=== PATIENT | female | born 2000 | race Caucasian/White ===

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

== ENCOUNTER 2023-08-24 13:45 | Emergency (ER) | payer BC, MEDICAID, SELFPAY ==
[2023-08-24 13:48] VITALS: BP 133/102; PULSE 103; RESP 18; TEMP 36.4; O2SAT 91
--- NOTE | 2023-08-24 14:13 | EDS_ITS ---
HPI HPI - Female History of Present Illness Chief Complaint: Vag Bleeding Detail of Chief Complaint: Fever on Tuesday now resolved. Informant: patient and parent Narrative Narrative: 23-year-old female with history of severe autism. On Depo shot. She had a fever on Tuesday and since resolved. She has had no cough. No nausea or vomiting. No diarrhea. She also started having vaginal bleeding today. Has not had a menstrual period for 3 years. Patient is very limited in her communication skills due to her autism and is unable to really add any history. Father is in the room is giving history. Prior similar symptoms: Yes Recent Illness/Hospitalization: No PFSH PFSH Medical History Autism Home Medications Lactobacillus rhamnosus GG 20 billion cell capsule (Probiotic Digestive Care) 2 ea PO BID [facility] 01/01/17 [History Last Taken 03/19/21] polyethylene glycol 3350 17 gram oral powder packet 17 g PO DAILY Check with primary doctor 01/01/17 [History Last Taken 03/19/21] medroxyprogesterone 150 mg/mL intramuscular syringe 150 mg IM .[id number] HORMONES 03/19/21 [History Last Taken 1 Month Ago ~02/16/21] dexamethasone 4 mg tablet (Decadron) 4 mg PO DAILY #5 tabs 05/28/21 [Rx Last Taken Unknown] levetiracetam 750 mg tablet (Keppra) 750 mg PO BID 06/01/21 [History Last Taken Unknown] sulfamethoxazole 800 mg-trimethoprim 160 mg tablet (Bactrim DS) 1 tab PO BID 5 days #10 tabs 08/24/23 [Rx Last Taken Unknown] Allergy/AdvReac Type Severity Reaction Status Date / Time No Known Allergies Allergy Verified 08/24/23 13:47 Social History Smoking Status: Never smoker ROS ROS ED ROS Narrative Fever on Tuesday resolved. Vaginal bleeding. Very limited review of systems due to patient's mental status. Discussed with father. Review of Systems ROS Unobtainable: due to mental condition Constitutional Constitutional ED: Reports fever(s); Denies chills Eyes Eyes: Denies blurry vision ENT ENT ED: Denies ear pain Cardiovascular Cardiovascular: Denies chest pain Respiratory/Chest Respiratory/Chest: Denies cough or dyspnea Gastrointestinal Gastrointestinal: Denies abdominal pain Genitourinary Genitourinary ED: Denies dysuria or hematuria Musculoskeletal Musculoskeletal: Denies arthralgias or myalgias Integumentary Denies abscess or Abrasions Neurologic Neurologic: Denies headache(s) Psychiatric Psychiatric: Denies anxiety Endocrine Endocrinology: Denies heat intolerance Hematologic/Lymphatic Hematologic/Lymphatic: Denies easy bleeding or easy bruising Allergic/Immunologic Allergic/Immunologic ED: Denies tongue swelling EXAM Physical Exam Narrative Exam Narrative: 23-year-old autistic female. Vital signs stable afebrile. H EENT exam unremarkable. Mytrex membranes. TMs normal bilaterally. Neck nontender no lymphadenopathy. Lungs clear to auscultation bilaterally. Heart regular rhythm rate about 100 no murmur. Chest wall and ribs nontender. Abdomen soft, nontender, nondistended normal bowel sounds no peritoneal signs. No localizing tenderness. Moving all 4 extremities. Nontender no edema. No cellulitis. No deformity. Back nontender. Neurologically she is awake. Her eyes are open. She is alert. She is a very limited informant and is very limited communication skills due to her autism. Father is present in room. Const Vital Signs: 08/24/23 13:48 08/24/23 15:47 08/24/23 16:04 Temperature 97.6 F L 98.9 F Temperature Source Temporal Oral Pulse Rate 103 H 96 83 Respiratory Rate 18 16 16 Blood Pressure 133/102 H 149/82 H 146/71 H Blood Pressure Mean 112 104 96 Pulse Ox 91 97 96 Oxygen Delivery Method Room Air Room Air Room Air Positive well nourished and well developed; Negative for cachectic, contractures or unkempt General Appearance ED: well developed and NAD; Negative for unkempt, cachectic, contractures or pallor Nutritional Appearance: Negative for cachectic HEENT Reports TM's clear and moist mucous membranes; Denies dry mucous membranes Negative for trauma or tenderness Tympanic Membrane ED: Yes TM's clear Mouth ED: No dry mucous membranes Mouth: No dry mucous membranes Eyes PERRL and EOMs intact bilaterally General Eye ED: Negative for pale conjunctiva, scleral icterus or other Neck no lymphadenopathy, supple and no JVD General: Negative for other Thyroid: Negative for tender Lymph Lymphatic: Negative for other Chest Wall inspection of chest normal and palpation of chest normal Chest: Negative for other Resp normal respiratory effort and clear to auscultation bilaterally Effort and Inspection: Negative for pain with movement Auscultation: Negative for rales, rhonchi, wheezes or diminished lung sounds Cardio regular rate, regular rhythm, S1 normal heart sound, no murmurs and no JVD Rate: Negative for bradycardia or tachycardic Rhythm: Negative for abnormal rhythm GI normal to inspection, nondistended, normoactive bowel sounds, soft to palpation, non-tender, non-distended and no masses Auscultation: normoactive bowel sounds Palpation: Negative for tender, guarding or rigid Back/Spine no CVA tenderness General Back: Negative for CVA tenderness Cervical Spine: Negative for cervical spine tenderness Thoracic Spine / Upper Back: Negative for thoracic spinal tenderness Lumbar Spine / Lower Back: Negative for lumbar spinal tenderness Sacrum: Negative for other Extremity normal to inspection and full ROM General Extremety ED: Negative for edema or tenderness General Extremity: Negative for edema Neuro CN's II-XII intact bilaterally Neuro Narrative: Awake alert. Eyes open. Follows very limited commands. Severe autism. Sensorium / Orientation: alert; Negative for oriented to place or oriented to time Psych mental status grossly normal Appearance: Negative for unkempt Attitude: No agitated Speech: No other Mood & Affect: Negative for depressed, anxious or tearful Skin no rashes or lesions noted and no wounds General Skin Exam: Negative for jaundice or pallor Rashes: No rashes noted Trauma: Negative for other MDM MDM MDM Narrative Medical decision making narrative: 23-year-old autistic female with fever on Tuesday resolved. Benign exam. I will do screening labs and UA will be obtained. She is also adamant home bleeding and test to be obtained. Her exam is completely benign. Repeat exam patient doing well at 4:25 PM. Abdomen benign. I went over test results with her dad. He was very grateful that when the nurses did the straight cath patient was given a milligram of Ativan. Because last time they had to hold her down with 6 people. He is comfortable with her being discharged home on Bactrim for her UTI. Urine culture will be sent. He will follow-up with her primary care physician to ensure she is improving. History & Record Review Discussion w/independent historian: Patient and Family (Father present in the room.) Lab Data Attestation: I reviewed the patient's lab results. Lab results narrative: CBC shows normal white count 8.2. H&H of 15 and 47. Platelets 220. Chemistries show gap of 4. BUN of 15 creatinine 0.4. Glucose 87. Serum test negative. Urinalysis positive for nitrites white and red cells. Contaminated epithelial cells. 3+ bacteria. She will be treated for UTI due to the nitrites and 3+ bacteria and the white cells even though it is a contaminated specimen but it was a straight cath specimen. Chest x-ray unremarkable. Labs: Laboratory Results - last 24 hr 08/24/23 08/24/23 15:50 16:00 WBC 8.2 RBC 5.09 Hgb 15.0 Hct 47.8 H MCV 93.9 MCH 29.5 MCHC 31.4 L RDW Std Deviation 44.9 H RDW Coeff of Anum 12.9 Plt Count 220 MPV 11.3 Immature Gran % (Auto) 0.200 Neut % (Auto) 53.4 Lymph % (Auto) 33.6 [place] % (Auto) 10.3 H Eos % (Auto) 1.8 Baso % (Auto) 0.7 Absolute Neuts (auto) 4.4 Absolute Lymphs (auto) 2.77 Nucleated RBC % 0 Sodium 141 Potassium 4.5 Chloride 111 H Carbon Dioxide 26.0 Anion Gap 4 L BUN 15 Creatinine 0.44 L Estim Creat Clear Calc 269.99 Est GFR (MDRD) Af Amer 232 Est GFR (MDRD) Non-Af 192 BUN/Creatinine Ratio 34.2 H Glucose 87 Calcium 9.8 Serum , Qual NEGATIVE Urine Color Yellow Urine Clarity Cloudy Urine pH 6.5 Ur Specific [place] 1.015 Urine Protein 30 H Urine Glucose (UA) Normal Urine Ketones Negative Urine Occult Blood 250 H Urine Nitrite Positive H Urine Bilirubin Negative Urine Urobilinogen Normal Ur Leukocyte Esterase 500 H Urine RBC 25-50 SEEN Urine WBC 25-50 SEEN Ur Squamous Epith Cells 5-10 SEEN Urine Bacteria 3+ Urine Mucus 0 SEEN Radiography Chest X-Ray - ED: 1 View, Read by ED Physician, Read by Radiologist, Heart, Lungs, Mediastinum, Bony Structures, No Acute Disease and Chronic Changes Diagnostic Testing: Clinical Impression(s) from Imaging Studies Chest X-Ray 08/24/23 14:20 IMPRESSION: Limited inspiration with mild bibasilar atelectasis more prominent at the left lung base. Electronically Signed: Cristian Power MD at 14:34 EDT , Chest x-ray, portable, single view interpreted both by myself and radiologist. Shows mild bibasilar atelectasis otherwise no acute process. No infiltrate. No pneumonia. Discharge Plan Triage Chief Complaint: Vag Bleeding ED Provider: Cesar Reno Dx/Rx/DC Orders Clinical Impression: History of autism, Urinary tract infection Instructions: Urinary Tract Infections in Women Prescriptions: New sulfamethoxazole-trimethoprim [Bactrim DS] 800-160 mg tablet 1 tab PO BID 5 Days Qty: 10 0RF No Action polyethylene glycol 3350 17 GM powder in packet 17 g PO DAILY Probiotic Digestive Care 1 EACH capsule 2 ea PO BID medroxyprogesterone 150 mg/mL syringe 150 mg IM .[id number] Rx Instructions: every three months levetiracetam [Keppra] 750 mg Tablet 750 mg PO BID dexamethasone [Decadron] 4 mg tablet 4 mg PO DAILY Qty: 5 0RF Primary Care Provider: Alek Colunga Referrals: Alek Colunga MD [Primary Care Provider] - 3-5 Days if not improving Activity Restrictions/Additional Instructions: She appears to have a urinary tract infection. Otherwise labs look good. Bactrim 1 pill twice a day for next 5 days. A urine culture was sent today. Follow-up with your doctor to ensure she is improving. Return if a lot worse. Her blood counts and kidney function and other labs and chest x-ray are unremarkable. Disposition Disposition: Home, Self Care
--- NOTE | 2023-08-24 14:20 | RAD_ITS ---
STUDY: X-RAY CHEST REASON FOR EXAM: Female, 23 years old. Fever TECHNIQUE: Single AP portable view of the chest. COMPARISON: Comparison is made with prior study March 30, 2021. FINDINGS: Limited inspiratory effort. Mild bibasilar atelectasis. There is no demonstrated pleural abnormality. Normal size heart. Normal mediastinum and kassidy. Normal visualized pulmonary arteries. Normal visualized aortic arch and descending thoracic aorta. Normal visualized thoracic spine. Normal visualized ribs, clavicles, and shoulders. There is no demonstrated abnormality of the visualized soft tissue structures of the upper abdomen. RAD/Chest 1 View (Portable) IMPRESSION: Limited inspiration with mild bibasilar atelectasis more prominent at the left lung base. Electronically Signed: Cristian Power MD at 14:34 EDT ,
[2023-08-24 15:47] VITALS: BP 149/82; PULSE 96; RESP 16; O2SAT 97
[2023-08-24] MEDS: LORazepam 2 MG/ML Syringe 1 MG IV (15:49)
[2023-08-24 15:52] VITALS: BMI 41.1
[2023-08-24 15:59] LABS: Absolute Lymphocyte Count 2.77 X10^3/uL (0.83-4.51); Absolute Neutrophil Count 4.4 X10^3/uL (2.0-7.7); Basophil# 0.06 X10^3/uL; Basophil% 0.7 % (0-1); Eosinophil# 0.15 X10^3/uL; Eosinophils% 1.8 % (0-5); Hematocrit 47.8 % (37-47); Lymphocyte # 2.77 X10^3/ul (0.83-4.51); Lymphocyte % 33.6 % (19-41); Mean Corp Hgb Conc 31.4 g/dL (32-36); Mean Corpuscular Hgb 29.5 pg (27.0-32.0); Mean Corpuscular Volume 93.9 fL (81-99); Mean Platelet Vol. 11.3 fl (6.2-12.0); Monocyte# 0.85 X10^3/uL; Monocyte% 10.3 % (0-10); NRBC Flagged by Analyzer 0 % (0-5); Neutrophil # 4.39 X10^3/uL (2.7-7.7); Neutrophil % 53.4 % (47-70); Platelet Count 220 K/mm3 (150-450); RBC Distribution Width CV 12.9 % (11.6-14.6); RBC Distribution Width SD 44.9 fl (35.1-43.9); Red Blood Count 5.09 M/mm3 (4.2-5.4); White Blood Count 8.2 K/mm3 (4.4-11.0)
[2023-08-24 16:03] LABS: Mucous, Urine 0 SEEN /hpf (<or=2+)
[2023-08-24 16:04] VITALS: BP 146/71; PULSE 83; RESP 16; TEMP 37.2; O2SAT 96
[2023-08-24 16:07] LABS: Color, Urine Yellow (Yellow); Glucose, Dipstick Normal (Normal); Ketone-Dipstick Negative (Negative); Leukocyte Esterase-Dipstick 500 /ul (Negative); Nitrite-Dipstick Positive (Negative); Occult Blood-Urine 250 /ul (Negative); Protein-Dipstick 30 mg/dl (Negative); Specific Gravity, Urine 1.015 (1.002-1.030); Urine Bilirubin Dipstick Negative (Negative); Urine Clarity Cloudy (Clear); Urine Urobilinogen Normal (Normal); Urine pH 6.5 (5.0 - 8.0)
[2023-08-24 16:15] LABS: Anion Gap 4 (5-15); BUN 15 mg/dL (7-18); BUN/Creat Ratio 34.2 RATIO (10-20); Calcium,Total 9.8 mg/dL (8.5-10.1); Chloride 111 mmol/L (98-107); Creatinine, Serum 0.44 mg/dL (0.55-1.02); EST Glomerular Filtration Rate 192 mL/min (>60); Est Glom Filt Rate - Afr Amer 232 mL/min (>60); Estimated Creatinine Clearance 269.99 ml/min; Glucose 87 mg/dL (74-106); Potassium 4.5 mmol/L (3.5-5.1); Sodium Level 141 mmol/L (136-145)
[2023-08-24 16:19] LABS: Red Blood Cells-Urine 25-50 SEEN /hpf (0-5); Squamous Epithelial Cells - UA 5-10 SEEN /hpf (5-10); White Blood Cells 25-50 SEEN /hpf (0-5)
[2023-08-24 16:20] LABS: Bacteria 3+ /hpf (None Seen)
[2023-08-24 16:21] LABS: Internal QC Validated? YES +Cl - CLEAR BKGD; Pregnancy, Serum, hCG Quali. NEGATIVE Negative
[2023-08-24] MEDS: Smz/Tmp Ds Tablet 1 TABLET PO (16:37)
== END 2023-08-24 16:46 | disposition home or self-care (01) ==
PROVIDERS: Emergency Provider Emergency Medicine; PCP Pediatrics; Visit Provider Emergency Medicine
DX: N39.0 Urinary tract infection, site not specified (principal); F84.0 Autistic disorder
CPT/HCPCS: 71045; 80048; 81001; 84703; 85025; 87077; 87086; 87088; 87186; 96374; 99284; P9612; A4216

== ENCOUNTER 2024-08-02 12:04 | Emergency (ER) | payer BC, MEDICAID, SELFPAY ==
[2024-08-02 12:04] VITALS: BP 150/100; PULSE 83; RESP 18; TEMP 37.2; O2SAT 99; BMI 43.3
[2024-08-02 14:04] VITALS: PULSE 81; RESP 18; O2SAT 99
[2024-08-02] MEDS: Ondansetron 4 MG/2 ML Vial IV (14:05)
[2024-08-02] MEDS: 0.9% Normal Saline (1000mL) 1,000 ML 999 ML IV (14:05)
[2024-08-02] MEDS: Acetaminophen 650 MG/20 ML UDC PO (14:05)
--- NOTE | 2024-08-02 15:05 | EX.ED.DYSGE1 ---
HPI History of Present Illness Chief Complaint: Abd Pain Narrative Narrative: Chief complaint and HPI: Nausea, vomiting, abdominal pain. 24-year-old female with past medical history of autism and seizures presents with father for evaluation of nausea, vomiting, abdominal pain. Father states that he recently had a cold. He states shortly after his daughter developed increased fatigue on . He states over the weekend she developed nausea and vomiting. Nonbloody. She has associated decreased appetite. Triage note states constipation however father denies constipation he states that it is just less stool than normal. No diarrhea. Concerned maybe she has a bowel blockage. She has a history of UTIs in the past. Patient mostly nonverbal and therefore history unable to be obtained. Father denies any fever, chills, cough, shortness of breath. Review of systems: See HPI Medications: As listed on the chart Allergies: As listed on the chart PFSH: Per chart Vital signs: As listed on the chart. Reviewed. Physical exam: Gen: Alert, unable to assess orientation given patient's autism, NAD Head: Normocephalic, atraumatic Eyes: No sclera icterus, conjunctiva clear ENT: Moist mucous membranes Neck: Full range of motion, no meningismus CV: RRR, no murmurs Resp: Lungs CTA BL, no w/r/c GI: Abd soft, non-distended, non-tender, no r/r/g Musc: Full ROM, no deformity Skin: Warm, dry Neuro: Alert, grossly intact and at neurological baseline per father Psych: Cooperative, appropriate mood and affect [facility] Medical History Autism Home Medications ?Medication ?Instructions ?Recorded ?Last Taken ?Type Lactobacillus rhamnosus GG 20 2 ea PO BID [facility] 01/01/17 03/19/21 History billion cell capsule (Probiotic Digestive Care) polyethylene glycol 3350 17 gram 17 g PO DAILY Check with primary 01/01/17 03/19/21 History oral powder packet doctor medroxyprogesterone 150 mg/mL 150 mg IM .[id number] HORMONES 03/19/21 1 Month Ago History intramuscular syringe ~02/16/21 dexamethasone 4 mg tablet 4 mg PO DAILY #5 tabs 05/28/21 Unknown Rx (Decadron) levetiracetam 750 mg tablet 750 mg PO BID 06/01/21 Unknown History (Keppra) sulfamethoxazole 800 1 tab PO BID 5 days #10 tabs 08/24/23 Unknown Rx mg-trimethoprim 160 mg tablet (Bactrim DS) Allergy/AdvReac Type Severity Reaction Status Date / Time No Known Allergies Allergy Verified 08/02/24 12:05 Social History Smoking Status: Never smoker EXAM Physical Exam Const Vital Signs: 08/02/24 12:04 08/02/24 14:04 Temperature 98.9 F Temperature Source Temporal Pulse Rate 83 81 Respiratory Rate 18 18 Blood Pressure 150/100 H Blood Pressure Mean 116 Pulse Ox 99 99 Oxygen Delivery Method Room Air MDM MDM MDM Narrative Medical decision making narrative: 24-year-old female with past medical history of autism and seizures presents with father for evaluation of nausea, vomiting, abdominal pain. Differential diagnosis includes but is not limited to viral illness, electrolyte abnormality, JAGDEEP, UTI, , pancreatitis, cholecystitis, colitis, constipation. Abdominal pain workup ordered including CT abdomen pelvis. NS bolus, Tylenol, Zofran ordered for symptoms. CBC without leukocytosis. Patient has hemoconcentration with a hemoglobin of 16, likely secondary to her nausea and vomiting. She is receiving fluids. UA positive for ketones as well as UTI. Urine culture sent. Rocephin ordered. Serum negative. COVID, flu, RSV negative. CMP and lipase pending at this time. CT abdomen pelvis pending. Patient signed out to oncoming physician, Dr. Rob. Final disposition pending laboratory workup and imaging. Impression: 1. Nausea and vomiting 2. Abdominal pain 3. UTI Lab Data Labs: Laboratory Results - last 24 hr 08/02/24 08/02/24 08/02/24 14:23 14:23 15:10 WBC Cancelled 9.2 Corrected WBC Cancelled RBC Cancelled 5.28 Hgb Cancelled 16.0 H Hct Cancelled 48.1 H MCV Cancelled 91.1 MCH Cancelled 30.3 MCHC Cancelled 33.3 RDW Std Deviation Cancelled 44.4 H RDW Coeff of Anum Cancelled 13.3 Plt Count Cancelled 179 MPV Cancelled 11.8 Immature Gran % (Auto) Cancelled 0.200 Neut % (Auto) Cancelled 56.7 Lymph % (Auto) Cancelled 33.8 [place] % (Auto) Cancelled 7.4 Eos % (Auto) Cancelled 1.2 Baso % (Auto) Cancelled 0.7 Absolute Neuts (auto) Cancelled 5.2 Absolute Lymphs (auto) Cancelled 3.12 Total Counted Cancelled Neutrophils % (Manual) Cancelled Band Neutrophils % Cancelled Lymphocytes % (Manual) Cancelled Monocytes % (Manual) Cancelled Eosinophils % (Manual) Cancelled Basophils % (Manual) Cancelled Metamyelocytes % Cancelled Myelocytes % Cancelled Promyelocytes % Cancelled Blast Cells % Cancelled Plasma Cell % (Manual) Cancelled Other Cells % Cancelled Nucleated RBC % Cancelled 0 Nucleated RBCs/100 WBC Cancelled Differential Comment Cancelled Diff Path Review Cancelled Hypersegmented Neuts Cancelled Atypical Lymphocytes Cancelled Reactive Lymphocytes Cancelled Smudge Cells Cancelled Toxic Granulation Cancelled Toxic Vacuolation Cancelled Dohle Bodies Cancelled Maia Rods Cancelled Platelet Estimate Cancelled Plt Morphology Comment Cancelled RBC Morphology Cancelled Cancelled Polychromasia Cancelled Hypochromasia Cancelled Basophilic Stippling Cancelled Anisocytosis Cancelled Microcytosis Cancelled Macrocytosis Cancelled Spherocytes Cancelled Sickle Cells Cancelled Target Cells Cancelled Tear Drop Cells Cancelled Ovalocytes Cancelled Stomatocytes Cancelled [place] Bodies Cancelled Zhou Cells Cancelled Bite Cells Cancelled Crenated Cell Cancelled Acanthocytes (Spur) Cancelled Rouleaux Cancelled Schistocytes Cancelled Serum , Qual NEGATIVE Urine Color Urine Clarity Urine pH Ur Specific [place] Urine Protein Urine Glucose (UA) Urine Ketones Urine Occult Blood Urine Nitrite Urine Bilirubin Urine Urobilinogen Ur Leukocyte Esterase 08/02/24 15:14 WBC Corrected WBC RBC Hgb Hct MCV MCH MCHC RDW Std Deviation RDW Coeff of Anum Plt Count MPV Immature Gran % (Auto) Neut % (Auto) Lymph % (Auto) [place] % (Auto) Eos % (Auto) Baso % (Auto) Absolute Neuts (auto) Absolute Lymphs (auto) Total Counted Neutrophils % (Manual) Band Neutrophils % Lymphocytes % (Manual) Monocytes % (Manual) Eosinophils % (Manual) Basophils % (Manual) Metamyelocytes % Myelocytes % Promyelocytes % Blast Cells % Plasma Cell % (Manual) Other Cells % Nucleated RBC % Nucleated RBCs/100 WBC Differential Comment Diff Path Review Hypersegmented Neuts Atypical Lymphocytes Reactive Lymphocytes Smudge Cells Toxic Granulation Toxic Vacuolation Dohle Bodies Maia Rods Platelet Estimate Plt Morphology Comment RBC Morphology Polychromasia Hypochromasia Basophilic Stippling Anisocytosis Microcytosis Macrocytosis Spherocytes Sickle Cells Target Cells Tear Drop Cells Ovalocytes Stomatocytes [place] Bodies Zhou Cells Bite Cells Crenated Cell Acanthocytes (Spur) Rouleaux Schistocytes Serum , Qual Urine Color Yellow Urine Clarity Sl. Cloudy Urine pH 8.0 Ur Specific [place] 1.010 Urine Protein 30 H Urine Glucose (UA) Normal Urine Ketones 5 H Urine Occult Blood 25 H Urine Nitrite Positive H Urine Bilirubin Negative Urine Urobilinogen 1 H Ur Leukocyte Esterase 500 H Discharge Plan Triage Chief Complaint: Abd Pain ED Provider: Leroy Jauregui Dx/Rx/DC Orders Prescriptions: No Action polyethylene glycol 3350 17 GM powder in packet 17 g PO DAILY Probiotic Digestive Care 1 EACH capsule 2 ea PO BID medroxyprogesterone 150 mg/mL syringe 150 mg IM .[id number] Rx Instructions: every three months levetiracetam [Keppra] 750 mg Tablet 750 mg PO BID sulfamethoxazole-trimethoprim [Bactrim DS] 800-160 mg tablet 1 tab PO BID 5 Days Qty: 10 0RF dexamethasone [Decadron] 4 mg tablet 4 mg PO DAILY Qty: 5 0RF Primary Care Provider: Alek Colunga Referrals: Alek Colunga MD [Primary Care Provider] - Print Language: Bulgarian
[2024-08-02 15:19] LABS: Absolute Lymphocyte Count 3.12 X10^3/uL (0.83-4.51); Absolute Neutrophil Count 5.2 X10^3/uL (2.0-7.7); Basophil# 0.06 X10^3/uL; Basophil% 0.7 % (0-1); Eosinophil# 0.11 X10^3/uL; Eosinophils% 1.2 % (0-5); Hematocrit 48.1 % (37-47); Lymphocyte # 3.12 X10^3/ul (0.83-4.51); Lymphocyte % 33.8 % (19-41); Mean Corp Hgb Conc 33.3 g/dL (32-36); Mean Corpuscular Hgb 30.3 pg (27.0-32.0); Mean Corpuscular Volume 91.1 fL (81-99); Mean Platelet Vol. 11.8 fl (6.2-12.0); Monocyte# 0.68 X10^3/uL; Monocyte% 7.4 % (0-10); NRBC Flagged by Analyzer 0 % (0-5); Neutrophil # 5.23 X10^3/uL (2.7-7.7); Neutrophil % 56.7 % (47-70); Platelet Count 179 K/mm3 (150-450); RBC Distribution Width CV 13.3 % (11.6-14.6); RBC Distribution Width SD 44.4 fl (35.1-43.9); Red Blood Count 5.28 M/mm3 (4.2-5.4); White Blood Count 9.2 K/mm3 (4.4-11.0)
[2024-08-02 15:24] LABS: Mucous, Urine 0 SEEN /hpf (<or=2+)
[2024-08-02 15:32] LABS: Color, Urine Yellow (Yellow); Glucose, Dipstick Normal (Normal); Ketone-Dipstick 5 mg/dl (Negative); Leukocyte Esterase-Dipstick 500 /ul (Negative); Nitrite-Dipstick Positive (Negative); Occult Blood-Urine 25 /ul (Negative); Protein-Dipstick 30 mg/dl (Negative); Urine Bilirubin Dipstick Negative (Negative); Urine Clarity Sl. Cloudy (Clear); Urine Urobilinogen 1 mg/dl (Normal)
[2024-08-02 15:43] LABS: Internal QC Validated? YES +Cl - CLEAR BKGD; Pregnancy, Serum, hCG Quali. NEGATIVE Negative
--- NOTE | 2024-08-02 16:01 | CT_ITS ---
PROCEDURE: ABDOMEN/PELVIS W IV CONT ONLY 08/02/2024 REASON FOR EXAM: ABDOMINAL PAIN TECHNIQUE: Abdomen and pelvis CT with intravenous contrast. Coronal and Sagittal reconstruction series were provided. PATIENT PREPARATION: Per protocol ORAL CONTRAST TYPE: None. CONTRAST: Isovue-300 VOLUME: 100mL One or more dose reduction techniques were used (e.g., Automated exposure control, adjustment of the mA and/or kV according to patient size, use of iterative reconstruction technique. RADIATION DOSE SUMMARY: DLP: 1497 mGycm FINDINGS: The lung bases are clear. There is no free air within the abdomen and pelvis. The liver is mildly heterogeneous, may be due to some degree of fatty infiltration. Hypodense structure is seen within the neck of the gallbladder. This is best seen on image 34/154. Dyspnea also be due to artifact. No gross evidence for acute cholecystitis is present. The spleen, adrenals are within normal limits. The pancreas appears atrophic for patient's age. Coarse calcification seen near the tail of the pancreas as well as the body of the pancreas. These findings may suggest sequela of chronic pancreatitis. Correlate clinically. There are nonobstructing stones present within the left kidney. The largest measures up to 1.3 x 0.9 cm (best seen on image 82/136). There are other punctate stones within the left kidney. The left kidney also appears heterogeneous particularly near the upper pole (image 88/136). There is subtle prominence of the bilateral urinary collecting systems. Please see differential below. There also too small to characterize low- attenuation structures within bilateral kidneys which may represent small cysts, although incompletely characterized. There is no definitive evidence of obstructive uropathy seen bilaterally. Foci of gas seen near the anterior wall of the urinary bladder (image 109/154). Etiology to be determined. The uterus and ovaries are present but incompletely characterized. Very large amount of stool is seen within the sigmoid and rectum. The rectum is markedly distended and measures up to 11.5 x 9.1 cm and contains large amount of stool. These finding may suggest fecal impaction. Correlate clinically. There is no evidence of bowel obstruction. A normal appendix is present. Small hiatal hernia is present. No definite large free fluid is seen within the pelvis. There are shotty lymph node within the bilateral inguinal region which are nonspecific. CT/Abdomen/Pelvis W IV Cont ONLY IMPRESSION: The left kidney appears heterogeneous particularly near the upper pole. There is mild prominence of bilateral renal collecting systems. There are nonobstructing left-sided renal stool is present. There is foci of gas within the anterior wall of the urinary bladder. These findings are pointing to infectious or inflammatory pro cess within the urinary system. Correlate clinically for history of recent bladder instrumentation regards to air within the anterior wall of the urinary bladder. Correlate with urinalysis. Urologic input may be helpful. Very large amount of stool seen within the rectosigmoid colon this may suggest constipation. Correlate clinically. Probable fatty infiltration of the liver. Atrophic pancreas. Calcification present within the body and tail of the pancr eas. This may represent sequela of chronic pancreatitis. Other findings as above. Reading Location: [id number]
[2024-08-02 16:09] LABS: Lactic Acid 1.5 mmol/L (0.0-2.0)
[2024-08-02 16:22] LABS: ALB/GLOB Ratio 1.3 RATIO (0.9-2.4); AST(SGOT) 23 U/L (<=31); Alanine Aminotransfer ALT/SGPT 21 U/L (<=34); Albumin, Serum 3.8 g/dL (3.5-5.0); Alkaline Phosphatase 90 U/L (35-104); Anion Gap 16 (5-15); BUN 8 mg/dL (4-19); Calcium,Total 9.5 mg/dL (7.6-11.0); Carbon Dioxide 17.6 mmol/L (21.0-32.0); Chloride 109 mmol/L (98-108); Creatinine, Serum 0.43 mg/dL (0.70-1.20); EST Glomerular Filtration Rate 141 (>60); Globulin 2.9 g/dL (2.2-4.2); Glucose 77 mg/dL (70-99); Lipase 23 U/L (13-75); Protein, Total 6.7 g/dL (5.9-8.4); Sodium Level 142 mmol/L (133-145); Total Bilirubin 0.91 mg/dL (0.00-1.30)
[2024-08-02] MEDS: Ceftriaxone 1 GM/50 ML BAG IV (16:33)
[2024-08-02 16:34] VITALS: BP 135/75; PULSE 88; RESP 14; O2SAT 97
[2024-08-02 16:57] LABS: Bacteria 3+ /hpf (None Seen); White Blood Cells >100 SEEN /hpf (0-5)
[2024-08-02 16:59] LABS: Red Blood Cells-Urine 0-5 SEEN /hpf (0-5); Squamous Epithelial Cells - UA 10-25 SEEN /hpf (5-10)
[2024-08-02] MEDS: Magnesium Citrate 300 ML PO (18:23)
== END 2024-08-02 18:29 | disposition home or self-care (01) ==
PROVIDERS: Emergency Provider Emergency Medicine; PCP Pediatrics; Referring Provider Surgery; Visit Provider Emergency Medicine
DX: K59.00 Constipation, unspecified (principal); G40.909 Epilepsy, unspecified, not intractable, without status epilepticus; R11.2 Nausea with vomiting, unspecified; F84.0 Autistic disorder; N39.0 Urinary tract infection, site not specified; R10.9 Unspecified abdominal pain; Z87.440 Personal history of urinary (tract) infections; Z79.899 Other long term (current) drug therapy
CPT/HCPCS: 36415; 74177; 80053; 81001; 83605; 83690; 84703; 85025; 87077; 87086; 87088; 87186; 87631; 96361; 96365; 96375; 99284; P9612; Q9967; A4216; J2405